=== PATIENT | female | born 1980 | race African-American/Black ===

== ENCOUNTER 2020-08-14 08:15 | Outpatient (RCR) | payer OTHER, SELFPAY ==
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
[2020-07-31 08:31] VITALS: BMI 23.3
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
--- NOTE | 2020-07-31 13:12 | PC.NURSE ---
Case opened in treatment team
--- NOTE | 2020-08-04 14:47 | PC.NURSE ---
Called CC spoke with Akila pina for providers.
--- NOTE | 2020-08-04 16:53 | HO.PHPPROGNO ---
Subjective Subjective Date of Service: 08/04/20 Reason For Visit: Depression and Anxiety Medical Problems Affecting Mental Status: No Interim History: Lana reports prazosin is working, she has had a decrease in nightmares. She cannot yet feel any change in depression since starting lamictal. It was explained that it may take several weeks as the medication blood level builds up in her system. She denies any type of rash / other side effects. She does state that she has had an increase in anxiety over the past several weeks. We discussed several medication options. She is willing to try hydroxyzine. Prescription for hydroxyzine 25mg four times daily as needed for anxiety was sent to pharmacy. Patient will try it for several days, and will contact TW if it not adequately managing her anxiety symptoms, to discuss trying another medication option. She was agreeable to this plan. We reviewed lamictal dosing / titration schedule and rationale. She has been taking medication for 5 days. I explained that for first 2 weeks, dose should remain at 25mg daily. Then Weeks 3 and 4, increase to 50mg daily. then week 6 and 7, 100mg daily. I explained that dose could continue up to 200mg daily if needed. She stated she understood. Medication Compliance: Yes Side effects from medications: No Attending Groups: Yes Review of Systems Review of Systems Yes all other systems are reviewed and are negative Psychiatric: Reports anxiety Mental Status Exam Mental Status Exam Patient Appearance: Well Grooomed and Appropriate Patient Orientation: Person, Place, Time and Situation Level of Consciousness: Awake and Appropriate Patient Behavior: Appropriate and Cooperative Mood Description: Appropriate and Anxious Affect Description: Appropriate and Anxious Patient Cognition Impaired: No Ability to Follow Directions: Excellent Speech Pattern: Clear Memory Description: Intact Hallucinations: None Delusions: Not Present Thought Process: Intact Thought Content: positive for Intact Depressive Symptoms: Increased Anxiety Judgement: Good Diagnostics Vital Signs (24Hr): Body Mass Index 23.3 Assessment & Plan Assessment & Plan (1) Mood disorder: Status: Acute Code(s): F39 - Unspecified mood [affective] disorder Assessment and Plan: Continue with current lamictal titration. Keep 25mg daily, with follow-up next week. Add hydroxyzine 25mg four times daily prn for anxiety symptoms. (2) Post traumatic stress disorder (PTSD): Status: Acute Code(s): F43.10 - Post-traumatic stress disorder, unspecified Assessment and Plan: continue with prazosin 2mg daily as needed for nightmares. Certification I certify that partial hospital treatment is medically necessary due to the symptoms and problems resulting from the patient's mental illness and the failure to treat the patient at the partial hospital level of care would likely result in the patient requiring inpatient psychiatric care which could not be prevented at a less intensive level of care. Greater than 50% of the session was spent on counseling and/or coordination of care Discharge Plan Discharge Attending provider: Iglesia Broderick Medications: New lamotrigine [Lamictal] 25 mg tablet 25 mg PO DAILY 14 Days Qty: 14 RF: 0 prazosin 2 mg capsule 2 mg PO BEDTIME Qty: 14 RF: 0 hydroxyzine HCl 25 mg tablet 25 mg PO QID PRN (Reason: anxiety) Qty: 28 RF: 0 No Action albuterol sulfate 90 mcg/actuation Hfa Aerosol Inhaler 2 puff INHALATION Q4H PRN (Reason: Shortness Of Breath) RF: 0 Telehealth Telehealth Location of provider rendering services: practice address Location of patient: address on file Patient Identification confirmed using: Name, : Yes Telehealth method: video Patient verbally consented to treatment: Yes Patient verbally consented to billing insurance company: Yes Patient informed of any privacy concerns related to visit: Yes Time spent with patient (mins): 15
--- NOTE | 2020-08-08 14:14 | PC.NURSE ---
Patient reports pain issues and has been attending Physical Therapy 2 x a week. Patient has a new PCP appointment in September and I suggested to patient to ask her new PCP for a pain management referral as pain management is requesting a referral from a PCP. In addition, I suggested patient ask her physical therapist if they would refer her to a pain management clinic.
--- NOTE | 2020-08-11 08:39 | PC.NURSE ---
The client called out today because he was experiencing severe hip pain last night and did not sleep. She states that she will be in tomorrow. She also reports that she has one day of medication left. I told her I would inform Rosamaria.
--- NOTE | 2020-08-11 09:43 | PC.NURSE ---
Patient called staff and stated she was going to be out today as she c/o hip pain and needed to rest. She also stated she will be running out of medications. Called [facility] to f/u. Lana stated they added something new to the PT program and is in pain and wants to rest for the day. Patient does not have a PCP at present however has a new PCP appointment with [facility] in August. She was told she can use [facility] walk in clinic if needed until her appointment. Suggested she call or make an appointment with the walk in clinic to f/u with pain issues and to see if they can make a referral to a pain clinic as the pain clinic stated patient needs a referral from a doctor. Patient stated she would f/u. Plans on attending the program tomorrow.
--- NOTE | 2020-08-12 16:21 | HO.PHPPROGNO ---
Subjective Subjective Date of Service: 08/12/20 Reason For Visit: Depression and Anxiety Medical Problems Affecting Mental Status: No Interim History: Lana reports prazosin is working, she has not experienced any nightmares. Denies any type of side effect with Lamictal, but states that it is not yet at dose high enough to assist with depression. We did discuss dose titration going forward. Patient reports hydroxyzine 4 times daily 25 mg for anxiety is helping a little, but that her anxiety is still ?pretty bad?. Discussed adding medication BuSpar in order to assist in the management of anxiety. She was in agreement. Medication Compliance: Yes Side effects from medications: No Attending Groups: Yes Review of Systems Review of Systems Yes all other systems are reviewed and are negative Mental Status Exam Mental Status Exam Patient Appearance: Well Grooomed and Appropriate Patient Orientation: Person, Place, Time and Situation Level of Consciousness: Appropriate and Alert Patient Behavior: Appropriate and Cooperative Mood Description: Depressed and Anxious Affect Description: Appropriate, Depressed and Anxious Patient Cognition Impaired: No Ability to Follow Directions: Excellent Speech Pattern: Clear and Appropriate Memory Description: Intact Hallucinations: None Delusions: Not Present Thought Process: Intact Thought Content: positive for Intact Depressive Symptoms: Increased Anxiety, Hopelessness and Unhappiness Judgement: Good Diagnostics Vital Signs (24Hr): Body Mass Index 23.3 Assessment & Plan Assessment & Plan (1) Mood disorder: Status: Acute Code(s): F39 - Unspecified mood [affective] disorder Assessment and Plan: Patient receiving slow titration schedule of Lamictal so as to avoid side effects, especially Andrew Raúl's. Dose increased to 50 mg daily times 14 days, start tomorrow. Patient wishes to remain with hydroxyzine script, as it is helping ?a little? BuSpar 15 mg b.i.d. added to further help manage anxiety symptoms. PLAN: Scripts for prazosin, Vistaril, Lamictal, BuSpar sent to pharmacy, 30 day supply. Patient is scheduled in 1 month to see new outpatient provider at [facility]. Plan to follow up with patient on Tuesday prior to completing program. (2) Post traumatic stress disorder (PTSD): Status: Acute Code(s): F43.10 - Post-traumatic stress disorder, unspecified Assessment and Plan: Patient reports current prazosin 2 mg at bedtime is helping manage nightmares, would like to keep does at same for now. Patient educated on: diagnosis, medication risk/benefits and therapeutic strategies Informed Consent: understands Reason for contiued partial hosp. stay Substantial Risk for: inability to function Certification I certify that partial hospital treatment is medically necessary due to the symptoms and problems resulting from the patient's mental illness and the failure to treat the patient at the partial hospital level of care would likely result in the patient requiring inpatient psychiatric care which could not be prevented at a less intensive level of care. Greater than 50% of the session was spent on counseling and/or coordination of care Discharge Plan Discharge Attending provider: Iglesia Broderick Additional Instructions: [facility] appointments Bettina Taylor 08/14/20 @ 7 pm , Kamila Rosenberg APRN 09/12/20 9am and 10/10/20 9 am Patient has a new Primary Care appointment on September 24, 2020 with [facility] at 2:30 Pm. Pt able to utilize [facility] walk in clinic if needed prior to appointment. Medications: New prazosin 2 mg capsule 2 mg PO BEDTIME 30 Days Qty: 30 RF: 0 hydroxyzine pamoate [Vistaril] 25 mg capsule 25 mg PO QID PRN (Reason: anxiety) 30 Days Qty: 120 RF: 0 buspirone 15 mg tablet 15 mg PO BID 30 Days Qty: 60 RF: 0 No Action albuterol sulfate 90 mcg/actuation Hfa Aerosol Inhaler 2 puff INHALATION Q4H PRN (Reason: Shortness Of Breath) RF: 0 Stand Alone Forms: Patient Portal Discharge page Telehealth Telehealth Location of provider rendering services: practice address Location of patient: address on file Patient Identification confirmed using: Name, : Yes Telehealth method: video Patient verbally consented to treatment: Yes Patient verbally consented to billing insurance company: Yes Patient informed of any privacy concerns related to visit: Yes Time spent with patient (mins): 15
--- NOTE | 2020-08-14 15:14 | HO.PHPPROGNO ---
Subjective Subjective Date of Service: 08/14/20 Reason For Visit: Depression and Anxiety Medical Problems Affecting Mental Status: No Interim History: Lana reports that she feels ready for discharge from partial program today. She states that the Lamictal is beginning to help with mood. No rash or other side effects noted. No safety concerns at this time. She has been started several days ago with BuSpar 15 mg twice daily. She states that although it is very soon in therapy, she feels that it is starting to help. We discussed patient's medications, including Lamictal titration, use of BuSpar, and used of Vistaril. It was advised that she consider using Vistaril sparingly, as now she is taking BuSpar. It was suggested that she saved Vistaril for moments when she has breakthrough anxiety. She was in agreement with this plan. She will follow up at [facility] with his therapy and a prescriber. Script for Lamictal 50 mg for 14 days, and 100 mg going forward sent electronically to patient's pharmacy as bridge script until her upcoming appointments. Medication Compliance: Yes Side effects from medications: No Attending Groups: Yes Review of Systems Review of Systems Yes all other systems are reviewed and are negative Mental Status Exam Mental Status Exam Narrative: Well nourished, well groomed female, in no apparent distress. Patient Appearance: Well Grooomed and Appropriate Patient Orientation: Person, Place, Time and Situation Level of Consciousness: Awake, Appropriate and Alert Patient Behavior: Appropriate and Cooperative Mood Description: Appropriate and Anxious (some anxiety reported, states level has decreased somewhat. ) Affect Description: Appropriate and Anxious Patient Cognition Impaired: No Ability to Follow Directions: Excellent Speech Pattern: Clear and Appropriate Memory Description: Intact Hallucinations: None Delusions: Not Present Thought Process: Intact, Goal Oriented and Linear Thought Content: positive for Intact, positive for Goal Oriented, positive for Linear and positive for Logical Judgement: Good Diagnostics Vital Signs (24Hr): Body Mass Index 23.3 Assessment & Plan Assessment & Plan (1) Mood disorder: Status: Acute Code(s): F39 - Unspecified mood [affective] disorder Assessment and Plan: Patient appears to be improving regarding mood disorder. Mood and affect stable. Patient taking medications as prescribed, and has been participating fully in partial program while here. No safety concerns. Titration schedule for Lamictal and side effects reviewed. Patient states that she fully understands. Scripts sent to patient's pharmacy via electronically. Patient educated on: diagnosis, medication risk/benefits, therapeutic strategies and other (titration schedule for lamical, and side effects. Instructed to stop and call provider if rash develops. ) Informed Consent: understands Reason for contiued partial hosp. stay Substantial Risk for: stable for discharge Certification I certify that partial hospital treatment is medically necessary due to the symptoms and problems resulting from the patient's mental illness and the failure to treat the patient at the partial hospital level of care would likely result in the patient requiring inpatient psychiatric care which could not be prevented at a less intensive level of care. Greater than 50% of the session was spent on counseling and/or coordination of care Discharge Plan Discharge Attending provider: Iglesia Broderick Additional Instructions: [facility] appointments Bettina Taylor 08/14/20 @ 7 pm , Kamila Rosenberg APRN 09/12/20 9am and 10/10/20 9 am Patient has a new Primary Care appointment on September 24, 2020 with [facility] at 2:30 Pm. Pt able to utilize [facility] walk in clinic if needed prior to appointment. Medications: New prazosin 2 mg capsule 2 mg PO BEDTIME 30 Days Qty: 30 RF: 0 hydroxyzine pamoate [Vistaril] 25 mg capsule 25 mg PO QID PRN (Reason: anxiety) 30 Days Qty: 120 RF: 0 buspirone 15 mg tablet 15 mg PO BID 30 Days Qty: 60 RF: 0 lamotrigine [Lamictal] 100 mg tablet 100 mg PO DAILY Qty: 20 RF: 0 lamotrigine [Lamictal] 25 mg tablet 50 mg PO DAILY 14 Days Qty: 28 RF: 0 No Action albuterol sulfate 90 mcg/actuation Hfa Aerosol Inhaler 2 puff INHALATION Q4H PRN (Reason: Shortness Of Breath) RF: 0 Stand Alone Forms: Patient Portal Discharge page Telehealth Telehealth Location of provider rendering services: practice address Location of patient: address on file Patient Identification confirmed using: Name, : Yes Telehealth method: video Patient verbally consented to treatment: Yes Patient verbally consented to billing insurance company: Yes Patient informed of any privacy concerns related to visit: Yes Time spent with patient (mins): 15
--- NOTE | 2020-08-15 12:05 | PC.NURSE ---
Patient discharged on 08/13/20. Reviewed patient's discharge medications with patient. Patient reports taking medications as prescribed. Medication education provided. Denied any safety issues.
== END 2020-08-15 07:30 | disposition home or self-care (01) ==
LOC: HO.PHPA 08:15
PROVIDERS: Visit Provider Psychiatry & Neurology Psychiatry
DX: F39 Unspecified mood [affective] disorder (principal); F32.9 Major depressive disorder, single episode, unspecified; F43.10 Post-traumatic stress disorder, unspecified; Z79.899 Other long term (current) drug therapy
CPT/HCPCS: 90791; 90853

== ENCOUNTER 2020-11-27 07:45 | Outpatient (REF) | payer MEDICAID, SELFPAY ==
--- NOTE | ~2020-11-27 | XR_ITS ---
EXAMINATION: RIGHT HIP X-RAY CLINICAL INFORMATION: Right hip pain COMPARISON: None TECHNIQUE: 2 views of the right hip and one view of the pelvis FINDINGS: There are plates and screws in the right acetabulum. There are screws in the right proximal femur. Orthopedic hardware appears intact. No acute fracture, dislocation or evidence of hardware loosening is seen. There is arthritis of the right hip joint with joint space narrowing and osteophyte formation. The left hip joint is normal. Bones of the pelvis are otherwise normal. Soft tissues are unremarkable. XR/XR hip RT min 2V IMPRESSION: Orthopedic hardware in the right pelvis and proximal femur. Right hip arthritis.
--- NOTE | ~2020-11-27 | XR_ITS ---
EXAMINATION: RIGHT HIP X-RAY CLINICAL INFORMATION: Right hip pain COMPARISON: None TECHNIQUE: 2 views of the right hip and one view of the pelvis FINDINGS: There are plates and screws in the right acetabulum. There are screws in the right proximal femur. Orthopedic hardware appears intact. No acute fracture, dislocation or evidence of hardware loosening is seen. There is arthritis of the right hip joint with joint space narrowing and osteophyte formation. The left hip joint is normal. Bones of the pelvis are otherwise normal. Soft tissues are unremarkable. XR/XR pelvis 1-2V IMPRESSION: Orthopedic hardware in the right pelvis and proximal femur. Right hip arthritis.
== END 2020-11-27 07:46 | disposition home or self-care (01) ==
LOC: HO.HOSX 07:45
PROVIDERS: Visit Provider Physician Assistant
DX: M16.51 Unilateral post-traumatic osteoarthritis, right hip (principal); S32.401S Unspecified fracture of right acetabulum, sequela
CPT/HCPCS: 72170; 73502; 99202

== ENCOUNTER 2020-12-31 16:01 | Outpatient (REF) | payer MEDICAID, SELFPAY ==
--- NOTE | ~2020-12-31 | CT_ITS ---
EXAMINATION: CT HIP WITHOUT CONTRAST, RIGHT CLINICAL INFORMATION: Post right acetabular ORIF. COMPARISON: Right hip and pelvic radiographs dated 11/27/2020. TECHNIQUE: Contiguous axial CT images of the right hip were obtained without contrast. Multiplanar reformats were provided and reviewed. This CT examination was performed using dose optimization techniques as appropriate, variously including the following: *Automated exposure control *Adjustment of mA and/or kV according to patient size (this includes techniques or standardized protocols for targeted exams where dose is matched to indication/reason for exam; i.e. extremities or head) *Use of iterative reconstruction technique DLP: 501 mGy-cm FINDINGS: There is a posterior acetabular stabilization plate with multiple fixation screws as well as additional posterior acetabular craniocaudally oriented fixation plates. Additionally, there are orthopedic screws within the proximal right femur. No acute hardware or osseous fracture. No perihardware lucency to suggest loosening or infection. Chronic acetabular fractures in near-anatomic alignment with complete versus near-complete osseous bridging. No acute fracture or dislocation. Moderate right hip joint space narrowing with marginal osteophytes, consistent with secondary osteoarthritis. No acute lytic or blastic osseous lesion. Sclerosis within the right femoral head, which could indicate a degree of avascular necrosis. No cortical collapse or fragmentation. Significantly enlarged and lobulated uterus, which could indicate uterine fibroids. This is partially visualized and incompletely evaluated. CT/CT hip RT wo con IMPRESSION: 1. Acetabular and right proximal femoral ORIF without evidence of hardware complication. 2. Healed acetabular fractures in near-anatomic alignment. 3. Moderate right hip secondary osteoarthritis. 4. Sclerosis within the femoral head, which could indicate chronic avascular necrosis. No associated cortical collapse or fragmentation. 5. Partially visualized probable fibroid uterus.
== END 2020-12-31 16:02 | disposition home or self-care (01) ==
LOC: HO.CT 16:01
PROVIDERS: Visit Provider Physician Assistant
DX: S32.401D Unspecified fracture of right acetabulum, subsequent encounter for fracture with routine healing (principal)
CPT/HCPCS: 73700

== ENCOUNTER → 2021-02-16 14:20 | Outpatient (BNVA) | payer MEDICAID, SELFPAY | PROVIDERS: Visit Provider Physician Assistant | DX: M16.51 Unilateral post-traumatic osteoarthritis, right hip (principal) | CPT/HCPCS: 99212 ==

== ENCOUNTER 2021-03-02 13:32 | Outpatient (REF) | payer MEDICAID, SELFPAY ==
--- NOTE | ~2021-03-02 | FL_ITS ---
EXAMINATION: XR ARTHROGRAM HIP, RIGHT CLINICAL INFORMATION: Unilateral primary osteoarthritis, right hip. COMPARISON: None TECHNIQUE: Following explaining fluoroscopy-guided right hip steroid injection procedure, benefits and risk, a written consent was obtained. Patient was placed supine on the fluoroscopy table and anterior aspect of right hip was cleaned and draped in usual sterile manner. 1% lidocaine was injected at puncture site. A 5 inch 22-gauge needle was then inserted from the skin to the lateral aspect of right femoral neck and 2 mL of nonionic contrast was injected. A single image was obtained. Subsequently 1 mL of 40 mg of prednisone, 20 mL of 1% lidocaine and 2 mm Omnipaque was injected and needle withdrawn. Complete hemostasis achieved 0.2 site patient simple Band-Aid applied at puncture site. Patient on procedure extremely well. FINDINGS: There is a chain link plate with screws traversing the posterior acetabulum for an old healed fracture. There are 2 screws seen throughout the right greater trochanter. Contrast opacifies the right hip joint space. Fluoroscopy-guided right hip steroid injection performed. FLUOROSCOPY TIME: 0.8 DOSE AREA PRODUCT: 6.375 uGy-m2 (microgray-meter squared) FL/FL arthrogram hip RT IMPRESSION: Successful fluoroscopy-guided right hip steroid injection performed without immediate complications.
== END 2021-03-02 13:33 | disposition home or self-care (01) ==
LOC: HO.XRAY 13:32
PROVIDERS: PCP Registered Nurse Community Health; Visit Provider Physician Assistant
DX: M16.11 Unilateral primary osteoarthritis, right hip (principal)
CPT/HCPCS: 27093; 73525

== ENCOUNTER → 2021-04-15 15:21 | Outpatient (BNVA) | payer MEDICAID, SELFPAY | PROVIDERS: Visit Provider Physician Assistant | DX: M16.51 Unilateral post-traumatic osteoarthritis, right hip (principal); S32.401A Unspecified fracture of right acetabulum, initial encounter for closed fracture; X58.XXXA Exposure to other specified factors, initial encounter; Y93.9 Activity, unspecified; Y92.9 Unspecified place or not applicable; Y99.8 Other external cause status; J45.909 Unspecified asthma, uncomplicated; Z91.018 Allergy to other foods; Z88.0 Allergy status to penicillin | CPT/HCPCS: 99212 ==

== ENCOUNTER → 2021-06-04 15:33 | Outpatient (BNVA) | payer MEDICAID, SELFPAY | PROVIDERS: Visit Provider Physician Assistant | DX: M16.51 Unilateral post-traumatic osteoarthritis, right hip (principal) | CPT/HCPCS: 99212 ==

== ENCOUNTER 2021-06-22 13:23 | Outpatient (REF) | payer MEDICAID, SELFPAY ==
--- NOTE | ~2021-06-22 | FL_ITS ---
EXAMINATION: XR ARTHROGRAM HIP, RIGHT CLINICAL INFORMATION: Right hip pain. Previous right hip fracture with internal stabilization. COMPARISON: None TECHNIQUE: Following explaining fluoroscopy-guided right hip steroid injection procedure, benefits and risk, a written consent was obtained. Patient was placed supine on fluoroscopy table and anterior aspect of right hip was cleaned and draped in the usual sterile manner. 1% lidocaine was injected at puncture site. A 22-gauge spinal needle was inserted from the skin into the lateral border of the right femoral head and neck junction. 2 mL of non-ionic contrast was injected under fluoroscopy and a single image obtained. Subsequently 80 mg of methylprednisolone, 4 mL of 1% lidocaine and 4 mL 0.25% Sensorcaine was injected into the joint space and needle withdrawn. FLUOROSCOPY TIME: 1.4 minutes. DOSE AREA PRODUCT: 9.710 uGy-m2 (microgray-meter squared) FINDINGS: On the visualized images there is a posterior acetabular plate and screws stabilizing acetabular fracture. There is contrast opacifying the right hip joint space. Subsequently fluoroscopy-guided right hip steroid injection was performed. FL/FL arthrogram hip RT IMPRESSION: Successful right hip steroid injection performed under fluoroscopy.
== END 2021-06-22 13:24 | disposition home or self-care (01) ==
LOC: HO.XRAY 13:23
PROVIDERS: PCP Registered Nurse Community Health; Visit Provider Physician Assistant
DX: M16.11 Unilateral primary osteoarthritis, right hip (principal)
CPT/HCPCS: 27093; 73525

== ENCOUNTER 2023-11-28 15:19 | Outpatient (REF) | payer MEDICAID, SELFPAY ==
[2023-11-28 16:11] LABS: MANUAL DIFF FLAG NO
[2023-11-28 16:36] LABS: Basophils Absolute Auto 0.1 X10*3/uL (0.0-0.2); Basophils Percent Auto 0.5 % (0-2); Eosinophils Absolute Auto 0.4 X10*3/uL (0.0-0.4); Eosinophils Percent Auto 3.7 % (0-4); Hematocrit 25.5 % (37.0-47.0); Hemoglobin 7.4 g/dl (12.0-16.0); Imm Gran Abs Auto 0.05 X10*3/uL (0.00-0.03); Imm Gran Pct Auto 0.5 % (0.0-0.4); Lymphocytes Absolute Auto 3.6 X10*3/uL (1.2-4.9); Lymphocytes Percent Auto 37.4 % (20-40); Mean Corpuscular Hemoglobin 21.3 pg (27.0-33.0); Mean Corpuscular Volume 73.5 fL (80.0-98.0); Mean Platelet Volume 9.3 fL (9.4-12.3); Monocytes Absolute Auto 0.5 X10*3/uL (0.1-1.2); Monocytes Percent Auto 5.6 % (2-11); Neutrophils Absolute Auto 5.1 x10*3/uL (2.0-8.3); Neutrophils Percent Auto 52.3 % (45-73); Platelet Count 429 X10*3/uL (160-400); Red Blood Count 3.47 X10*6/uL (4.20-5.50); Red Cell Distribution Width 20.8 % (11.0-16.0); White Blood Count 9.7 X10*3/uL (4.8-10.8)
[2023-11-28 16:43] LABS: Estimated Average Glucose 103 mg/dL; Hemoglobin A1C 88.8087 umol/L; Hemoglobin A1c % 5.2 % (<6.0); Total Hemoglobin (HGBA1C) 2641.2119 umol/L
[2023-11-28 16:59] LABS: Alanine Aminotransferase 9 U/L (0-31); Albumin Level 4.3 g/dL (3.5-5.0); Alkaline Phosphatase 56 U/L (39-117); Anion Gap 9 (12-20); Aspartate Amino Transferase 13 U/L (5-31); Bilirubin Total 0.1 mg/dL (0.0-1.0); Blood Urea Nitrogen 11 mg/dL (9-16); Calcium 9.5 mg/dL (8.4-10.2); Carbon Dioxide 27 mmol/L (22-29); Chloride 108 mmol/L (96-108); Cholesterol 160 mg/dL (<200); Estimated Glomerular Filt Rate > 60; Glucose Random 92 mg/dL (60-115); HDL Cholesterol 48 mg/dL (>40); Iron 20 mcg/dL (30-160); LDL Cholesterol Calculated 101 mg/dL (<100); Percent Iron Saturation 6 % (15-50); Potassium 3.3 mmol/L (3.3-5.1); Sodium 141 mmol/L (135-145); Total Iron Binding Capacity 336 mcg/dL (228-428); Total Protein 7.6 g/dL (6.5-8.0); Triglycerides 57 mg/dL (<150); Unsaturated Iron Binding 316 ug/dL
[2023-11-28 17:09] LABS: Ferritin 5 ng/mL (10-250); TSH reflex Free T4 2.46 uIU/mL (0.32-4.0)
[2023-11-28 18:30] LABS: Reflex LDLD? No
== END 2023-11-28 15:20 | disposition home or self-care (01) ==
LOC: HO.HHCL 15:19
PROVIDERS: Visit Provider Family Medicine
DX: Z13.220 Encounter for screening for lipoid disorders (principal); E61.1 Iron deficiency; I10 Essential (primary) hypertension; Z13.1 Encounter for screening for diabetes mellitus
CPT/HCPCS: 36415; 80053; 80061; 82728; 83036; 83540; 84443; 85025

== ENCOUNTER 2025-01-15 15:59 | Outpatient (REF) | payer MEDICARE, MEDICAID, SELFPAY ==
--- OUTSIDE RECORDS SUMMARY | 2025-01-15 15:15 | XMS_ITS | Encounter Summary ---
Author Organization [employer] Address [address] [facility] 7 [place] [address] Care Team Providers Care Phonograph Needle Tip Maker Name Role Phone Florencia Meade MD Primary Care Provider [phone] Reason for Visit * Reason Comments Follow-up Anemia Encounter Details Date Type Department Care Team ([facility] st Contact Info) Description 01/15/2025 3:15 PM EST Office Visit [facility] MEDICINE [address] [place], [place] [phone] Florencia Meade MD [address] [place], [place] [phone] Hypertension, unspecified type (Primary Dx); Abnormal uterine bleeding (AUB); Iron deficiency anemia due to chronic blood loss; Generalized anxiety disorder; Mood disorder (CMS/HCC); Posttraumatic stress disorder; Current severe episode of major depressive disorder without psychotic features, unspecified whether recurrent (CMS/HCC) (HCC); Bilateral hip pain; Mild intermittent asthma without complication Social History Tobacco Use Types Packs/Day Years Used Date Smoking Tobacco: Never Smokeless Tobacco: Never Alcohol Answer Date Recorded Frequency of Alcohol Consumption Not on file 11/28/2023 Average Number of Drinks Not on file 024 Frequency of Binge Drinking Not on file 08/2023 Score 0 11/28/2023 Depression Answer Date Recorded Patient Health Questionnaire-9 Score 9 11/28/2023 Patient Health Questionnaire-9 Score 9 11/28/2023 Last PHQ-9: Questionnaire Data Not on file 1 Housing Stability Answer Date Recorded What is your housing situation today? I have drew hernandez 11/18/[address] you li ve. Do you have problems with any of the following? None of the above 11/18/2023 Food Insecurity Answer Date Recorded Within the past 12 months, y ou worried that your food would run out before you got money to buy more: Never True 11/28/2023 Within the past 12 months,th e food you bought just didn't last and you didn't have enough money to get more: Never True 08/2023 Transportation Answer Date Recorded In the past 12 months, has l ack of transportation kept you from medical appts, meetings, work or from getting things needed for daily living? No 11/18/2023 Utilities Answer Date Recorded In the past 12 months, has t he electric, gas, oil or water company threatened to shut off services in your home? No 11/18/2023 Depression Answer Date Recorded Patient Health Questionnaire-2 Score 2 11/28/2023 Internet Access Answer Date Recorded Internet Access Q1 Yes 11/18/2023 Internet Access Q2 Not on file 11/18/2023 Comments Unknown Sex and Gender Information Value Date Recorded Sex Assigned at Female 12/21/2021 10:38 AM EDT Legal Sex Female 10:38 AM EDT Gender Identity Female 12/21/2021 10:38 AM EDT Sexual Orientation Don't know 12/21/2021 10 :38 AM EDT documented as of this encounter Last Filed Vital Signs Vital Sign Reading Time Taken Comments Blood Pressure 132/80 01/15/2025 3:16 PM EST Pulse 103 01/15/2025 3:16 PM EST Temperature 36.7 C (98 F) 01/15/2025 3:16 PM EST Respiratory Rate 15 01/15/2025 3:16 PM EST Oxygen Saturation 99% 01/15/2025 3:16 PM EST Inhaled Oxygen Concentration - - Weight 85.3 kg (188 lb) 01/15/2025 3:16 PM EST Height 162.2 cm (5' 3.87 ) 01/15/2025 3:16 PM ES T Body Mass Index 32.4 01/15/2025 3:16 PM EST documented in this encounter Miscellaneous Notes * Assessment & Plan Note - Florencia Meade MD - 01/15/2025 7:01 AM ESTAssociated Problem(s): Hip pain - right worse than left - history of right acetabular fracture and dislocation s/p ORIF in Oct 2021 and left acetabular fracture - previously seeing [facility], then [facility] ortho. Last seen in 2021 - this is affecting patient's quality of life - she has tried NSAIDs and APAP which give marginal relief - will explore non-pharmacological modality - currently taking meloxicam - will add gabapentin. Discussed about its judicious use. - will prescribe lidocaine patch. - continue duloxetine, prescribed by behavioral health service provider - if no satisfactory outcome, will consider tramadol or more potent opioid * Assessment & Plan Note - Florencia Meade MD - 01/15/2025 6:57 AM ESTAssociated Problem(s): Mood disorder (CMS/HCC) - anxiety, depression, and PTSD - behavioral health service provider: [facility] - currently prescribed: lamotrigine; duloxetine; clonazepam; buspirone; prazosin - previously prescribed: risperidal; clonidine - continue current treatment plan per behavioral health service provider documented in this encounter Plan of Treatment Not on file documented as of this encounter Visit Diagnoses Diagnosis Hypertension, unspecified type- Primary Abnormal uterine bleeding (AUB) Iron deficiency anemia due to chronic blood loss Iron deficiency anemia secondary to blood loss (chronic) Generalized anxiety disorder Mood disorder (CMS/HCC) Unspecified episodic mood disorder Posttraumatic stress disorder Current severe episode of major depressive disorder without psychotic features, unspecified whether recurrent (CMS/HCC) (HCC) Bilateral hip pain Pain in joint, pelvic region and thigh Mild intermittent asthma without complication documented in this encounter Additional Health Concerns Assessment Noted Time PHQ-9 Depression Total Score: 9 11/28/19 24 2:33 PM EDT documented as of this encounter Care Teams Phonograph Needle Tip Maker Relationship Specialty Start Date End Date Florencia Meade MD [address] [place] [id number] PCP - General Family Medicine 11/28/23 documented as of this encounter
[2025-01-15 18:10] LABS: MANUAL DIFF FLAG NO
[2025-01-15 18:28] LABS: Hematocrit 26.6 % (37.0-47.0); Hemoglobin 8.1 g/dl (12.0-16.0); Imm Gran Abs Auto 0.04 X10*3/uL (0.00-0.03); Imm Gran Pct Auto 0.4 % (0.0-0.4); Lymphocytes Absolute Auto 3.0 X10*3/uL (1.2-4.9); Mean Corpuscular HGB Conc 30.5 g/dl (31.0-35.0); Mean Corpuscular Hemoglobin 23.3 pg (27.0-33.0); Mean Corpuscular Volume 76.4 fL (80.0-98.0); NRBC Abs Auto 0.000 X10*3/uL (0.0-0.012); NRBC Pct Auto 0.0 /100WBC (0.0-0.2); Platelet Count 500 X10*3/uL (160-400); Red Blood Count 3.48 X10*6/uL (4.20-5.50); Reticulocytes Absolute 0.056 X10*6/uL (0.026-0.095); White Blood Count 10.5 X10*3/uL (4.8-10.8)
[2025-01-15 18:49] LABS: Iron 17 mcg/dL (30-160); Percent Iron Saturation 4 % (15-50); Total Iron Binding Capacity 378 mcg/dL (228-428); Unsaturated Iron Binding 361 ug/dL
[2025-01-15 19:07] LABS: Ferritin 5 ng/mL (10-250)
[2025-01-15 19:13] LABS: INTERNATIONAL NORM RATIO 1.0 (0.9-1.1); Prothrombin Time 11.8 SEC (11.2-13.5)
[2025-01-15 19:18] LABS: Folate 8.0 ng/mL (> or = 4.0); Vitamin B12 430 pg/mL (200-900)
--- OUTSIDE RECORDS SUMMARY | 2025-01-15 19:23 | XMS_ITS | Encounter Summary ---
Author Organization [employer] Address [address] [facility] [address], [place] [address] Care Team Providers Care Ad Compositor Name Role Phone Florencia Meade MD Primary Care Provider [phone] Reason for Visit * Reason Onset Date Comments Returning Call 08/15/2023 Encounter Details Date Type Department Care Team ([facility] st Contact Info) Description 08/15/2023 Telephone [facility] MEDICINE [address] [place] [address] Marilin Lamb NP [address] [place] [address] Returning Call Social History Tobacco Use Types Packs/Day Years Used Date Smoking Tobacco: Never Assessed Comments Unknown Sex and Gender Information Value Date Recorded Sex Assigned at Female 12/21/2021 10:38 AM EDT Legal Sex Female 10:38 AM EDT Gender Identity Female 12/21/2021 10:38 AM EDT Sexual Orientation Don't know 12/21/2021 10 :38 AM EDT documented as of this encounter Miscellaneous Notes * Telephone Encounter - Js Jack - 08/15/2023 4:21 PM EDT Tc from pt returning call regarding message below. PEARL Ziegler placed outbound call to patient to complete pre-visit planning. No answer at this time. Patient name and were not confirmed. CC left voicemail requesting return call. Direct contact information provided. Please contact pt at [phone]. documented in this encounter Plan of Treatment Not on file documented as of this encounter Visit Diagnoses Not on filedocumented in this encounter Care Teams Ad Compositor Relationship Specialty Start Date End Date Florencia Meade MD [address] [place] [address] PCP - General Family Medicine 11/28/23 documented as of this encounter
--- OUTSIDE RECORDS SUMMARY | 2025-01-15 19:23 | XMS_ITS | Encounter Summary ---
Author Organization [employer] Address [address] [facility] 7 [place] [address] Care Team Providers Care Litigator Name Role Phone Florencia Meade MD Primary Care Provider [phone] Reason for Visit * Reason Onset Date Comments chartprep 01/14/2025 Encounter Details Date Type Department Care Team ([facility] st Contact Info) Description 01/14/2025 Telephone [facility] MEDICINE [address] [place], [place] [phone] Florencia Meade MD [address] [place] [address] chartprep Social History Tobacco Use Types Packs/Day Years [...] encounter Miscellaneous Notes * Telephone Encounter - Kathy Restrepo [place] - 01/14/2025 2:39 PM EST ..Chart Prep Labs: not done Images: not applicable Vaccines due: Covid Due, Tdap Due, Hep B Due, PCV20 Due, and Flu Due Referrals: Not Applicable Screenings: Mammogram Overdue care gaps: SDOH, PHQ9, GAD7, Disability , and Oral Health documented in this encounter Plan of Treatment Not on file documented as of this encounter Visit Diagnoses Not on filedocumented in this encounter Additional Health Concerns Assessment Noted Time PHQ-9 Depression Total Score: 9 11/28/19 2:33 PM EDT documented as of this encounter Care Teams Litigator Relationship Specialty Start Date End Date Florencia Meade MD [address] [place] [address] PCP - General Family Medicine 11/28/23 documented as of this encounter
--- OUTSIDE RECORDS SUMMARY | 2025-01-15 19:23 | XMS_ITS | Encounter Summary ---
Author Organization [employer] Address [address] [place] [address] Care Team Providers Care General Laborer Name Role Phone Florencia Meade MD Primary Care Provider [phone] Reason for Visit * Reason Comments Med Refill Encounter Details Date Type Department Care Team ([facility] st Contact Info) Description 09/20/2023 Refill [facility] MEDICINE [address] [place] [address] Gladys Molina MD [address] [place] [phone] Primary hypertension Social History Tobacco Use Types Packs/Day Years Used Date Smoking Tobacco: Never Assessed Comments Unknown Sex and Gender Information Value Date Recorded Sex Assigned at Female 12/21/2021 10:38 AM EDT Legal Sex Female 10:38 AM EDT Gender Identity Female 12/21/2021 10:38 AM EDT Sexual Orientation Don't know 12/21/2021 10 :38 AM EDT documented as of this encounter Plan of Treatment Not on file documented as of this encounter Visit Diagnoses Diagnosis Primary hypertension Unspecified essential hypertension documented in this encounter Care Teams General Laborer Relationship Specialty Start Date End Date Florencia Meade MD [address] [place] [address] PCP - General Family Medicine 11/28/23 documented as of this encounter
--- OUTSIDE RECORDS SUMMARY | 2025-01-15 19:23 | XMS_ITS | Encounter Summary ---
Author Organization [employer] Address [address] [facility] [address] [address] Care Team Providers Care Container Filler Name Role Phone Florencia Meade MD Primary Care Provider [phone] Reason for Referral * Consultation (Urgent) - Closed Specialty Diagnoses / Procedures Referred By Contac t Referred To Contact Diagnoses Iron deficiency anemia due to chronic blood loss Abnormal uterine bleeding (AUB) Florencia Meade MD [address] [place] [address] Phone: tel: fax: Della Ordonez [address] [place] [phone] Phone: tel: fax: Referral ID Status Reason Start Date Expiration Date V isits Requested Visits Authorized [id number] Closed Specialty Services Required 05/12/2024 05/12/2025 1 1 Encounter Details Date Type Department Care Team (Late st Contact Info) Description 05/12/2024 Orders Only [facility] MEDICINE [address] [place], [place] [phone] Florencia Meade MD [address] [place], [place] Iron deficiency anemia due to chronic blood loss (Primary Dx); Abnormal uterine bleeding (AUB) Social History Tobacco Use Types Packs/Day Years [...] as of this encounter Plan of Treatment Scheduled Referrals Name Type Priority Associated Diagnoses Order Schedule Referral to Obstetrics / Gynecology Outpatient Referral Urgent Iron deficiency anemia due to chronic blood loss Abnormal uterine bleeding (AUB) Expected: 05/12/2024 (Approximate), Expires: 05/12/2025 documented as of this encounter Visit Diagnoses Diagnosis Iron deficiency anemia due to chronic blood loss- Primary Iron deficiency anemia secondary to blood loss (chronic) Abnormal uterine bleeding (AUB) documented in this encounter Additional Health Concerns Assessment Noted Time PHQ-9 Depression Total Score: 9 11/28/19 24 2:33 PM EDT documented as of this encounter Care Teams Container Filler Relationship Specialty Start Date End Date Florencia Meade MD [address] [place] [address] PCP - General Family Medicine 11/28/23 documented as of this encounter
--- OUTSIDE RECORDS SUMMARY | 2025-01-15 19:23 | XMS_ITS | Encounter Summary ---
Author Organization [employer] Address [address] [facility] [address] [place] [address] Care Team Providers Care Mine Car Dispatcher Name Role Phone Carmen Crawford Primary Care Provider Florencia Gallagher MD Primary Care Provider [phone] Encounter Details Date Type Department Care Team ([facility] st Contact Info) Description 06/16/[address] [facility] [address] [place] [address] Sloane Powell LPN Social History Tobacco Use Types Packs/Day Years [...] on filedocumented in this encounter Care Teams Mine Car Dispatcher Relationship Specialty Start Date End Date Carmen Crawford FNP PCP - General Family Medicine 10/20/21 08/12/22 Florencia Meade MD [address] [place] [id number] PCP - General Family Medicine 11/28/23 documented as of this encounter
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
--- OUTSIDE RECORDS SUMMARY | 2025-01-15 19:23 | XMS_ITS | Encounter Summary ---
Author Organization [employer] Address [address], [place] [address] Care Team Providers Care Bill Sorter Name Role Phone Florencia Meade MD Primary Care Provider [phone] Reason for Referral * Imaging (Routine) - Closed Specialty Diagnoses / Procedures Referred By Contac t Referred To Contact Radiology Diagnoses Iron deficiency anemia due to chronic blood loss Abnormal uterine bleeding (AUB) Procedures Us Pelvis complete Florencia Meade MD [address] [place] [id number] Phone: tel: fax: [address] [address] Phone: tel: fax: Referral ID Status Reason Start Date Expiration Date Visits Re quested Visits Authorized [id number] Closed 11/30/2023 11/29/2024 1 1 * Imaging (Routine) - Closed Specialty Diagnoses / Procedures Referred By Contac t Referred To Contact Radiology Diagnoses Iron deficiency anemia due to chronic blood loss Abnormal uterine bleeding (AUB) Procedures US Pelvis Transvaginal Florencia Meade MD [address] [place] [address] Phone: tel: fax: [address] [address] Phone: tel: fax: Referral ID Status Reason Start Date Expiration Date Visits Re quested Visits Authorized [id number] Closed 11/30/2023 11/29/2024 1 1 * Consultation (Urgent) - Closed Specialty Diagnoses / Procedures Referred By Contac t Referred To Contact Hematology and Oncology Diagnoses Iron deficiency anemia due to chronic blood loss Florencia Meade MD [address] [place] [address] Phone: tel: fax: [facility] Referral ID Status Reason Start Date Expiration Date V isits Requested Visits Authorized [id number] Closed Specialty Services Required 11/28/2023 11/27/2024 1 1 Encounter Details Date Type Department Care Team (Late st Contact Info) Description 11/28/2023 Orders Only [facility] [address] [place] [address] Florencia Meade MD [address] [place] [address] Iron deficiency anemia due to chronic blood loss (Primary Dx); Iron deficiency anemia, unspecified iron deficiency anemia type; Abnormal uterine bleeding (AUB) Social History Tobacco [...] AM EDT documented as of this encounter Functional Status * Over the past 2 weeks, how often have you been bothered by any of the following problems? Question Answer Date of Assessment Author Patient Health Questionnaire -2 Score 2 11/28/2023 2:33 PM EDT Nita Roberts [place] * How difficult have these problems made it for you to do your work, take care of things at home, or get along with other people? Answer Date of Assessment Author Somewhat difficult 11/28/2023 2:33 PM EDT Cassy Guerin [place] * Over the last 2 weeks, how often have you been bothered by any of the following problems? Question Answer Date of Assessment Author Feeling nervous, anxious, or on edge 3 11/28/2023 2:33 PM EDT Nita Roberts MA Not being able to stop or control worrying 3 11/28/2023 2:33 PM THERESET Nita Roberts MA Worrying too much about different things 3 11/28/2023 2:33 PM Nita Valdes [place] Trouble relaxing 2 11/28/2023 2:33 PM EDT Cassy Monzon [place] Being so restless that it is hard to sit still 2 11/28/2023 2:33 PM Nita Valdes MA Becoming easily annoyed or irritable 1 11/28/2023 2:33 PM Nita Valdes [place] Feeling afraid as if somethi ng awful might happen 1 11/28/2023 2:33 PM Nita Valdes MA HUAN-7 Total Score 15 11/28/2023 2:33 PM Cassy Valdes MA * Over the past 2 weeks, how often have you been bothered by any of the following problems? Question Answer Date of Assessment Author Little interest or pleasure in doing things Several days 11/28/2023 2:33 PM Cassy Valdes MA Feeling down, depressed, or hopeless Several days 11/28/2023 2:33 PM Cassy Valdes [place] Trouble falling or staying asleep, or sleeping too much Nearly every day 11/28/2023 2:33 PM Cassy Valdes [place] Feeling tired or having little energy Several days 11/28/2023 2:33 PM Cassy Valdes [place] Poor appetite or overeating More than half the days 11/28/2023 2:33 PM Cassy Valdes MA Feeling bad about yourself - or that you are a failure or have let yourself or your family down Several days 11/28/2023 2:33 PM Cassy Valdes [place] Trouble concentrating on things, such as reading the newspaper or watching television Not at all 11/28/2023 2:33 PM Cassy Valdes MA Moving or speaking so slowly that other people could have noticed? Or the opposite - being so fidgety or restless that you have been moving around a lot more than usual. Not at all 11/28/2023 2:33 PM Cassy Valdes MA Thoughts that you would be better off or hurting yourself in some way Not at all 11/28/2023 2:33 PM EDT Cassy Roberts MA Patient Health Questionnaire-9 Score 9 11/28/2023 2:33 PM EDT Cassy Roberts MA documented as of this encounter Plan of Treatment Scheduled Orders Name Type Priority Associated Diagnoses Orde r Schedule US Pelvis Transvaginal Imaging Routine Iron deficiency anemia due to chronic blood loss Abnormal uterine bleeding (AUB) Expected: 11/30/2023, Expires: 11/29/2024 Us Pelvis complete Imaging Routine Iron deficiency anemia due to chronic blood loss Abnormal uterine bleeding (AUB) Expected: 11/30/2023, Expires: 11/29/2024 Scheduled Referrals Name Type Priority Associated Diagnoses Order Schedule Referral to Hematology / Oncology Outpatient Referral Urgent Iron deficiency anemia due to chronic blood loss Expected: 11/28/2023 (Approximate), Expires: 11/27/2024 documented as of this encounter Visit Diagnoses Diagnosis Iron deficiency anemia due to chronic blood loss- Primary Iron deficiency anemia secondary to blood loss (chronic) Iron deficiency anemia, unspecified iron deficiency anemia type Abnormal uterine bleeding (AUB) documented in this encounter Additional Health Concerns Assessment Noted Time PHQ-9 Depression Total Score: 9 11/28/19 2:33 PM EDT documented as of this encounter Care Teams Bill Sorter Relationship Specialty Start Date End Date Florencia Meade MD [address] [place] [address] PCP - General Family Medicine 11/28/23 documented as of this encounter
--- OUTSIDE RECORDS SUMMARY | 2025-01-15 19:24 | XMS_ITS | Encounter Summary ---
Author Organization [employer] Address [address] [place] [address] Care Team Providers Care Automotive Porter Name Role Phone Florencia Meade MD Primary Care Provider [phone] Encounter Details Date Type Department Care Team (Latest Contact Info) Description 01/15/2025 Travel Social History Tobacco Use Types Packs/Day Years [...] documented as of this encounter Care Teams Automotive Porter Relationship Specialty Start Date End Date Florencia Meade MD [address] [place] [id number] PCP - General Family Medicine 11/28/23 documented as of this encounter
== END 2025-01-15 16:00 | disposition home or self-care (01) ==
LOC: HO.HHCL 15:59
PROVIDERS: PCP Family Medicine; Visit Provider Family Medicine
DX: D50.0 Iron deficiency anemia secondary to blood loss (chronic) (principal)
CPT/HCPCS: 82607; 82728; 82746; 83540; 85025; 85045; 85610